=== PATIENT | female | born 1995 | race Caucasian/White ===

== ENCOUNTER 2017-04-14 18:14 | Emergency (ER) | payer OTHER ==
[~2017-04-14] VITALS: Ht 162.6 cm; Wt 108.1 kg
[2017-04-14 18:18] VITALS: TEMP 36.7; Ht 162.6 cm; Wt 108.1 kg
[2017-04-14 18:57] LABS: BASO % 0.2 %; BASO ABS # 0.03 K/uL (0-0.2); COMPLETE YES; EOS % 1.7 %; HEMATOCRIT 40.2 % (37-47); IG% 0.2 %; LYMPH % 22.5 %; LYMPH ABS # 2.97 K/uL (1.2-3.4); MEAN CELL VOLUME 75.4 fL (80-100); MEAN CORPUSCULAR HEMOGLOBIN 24.2 pg (25-34); MEAN CORPUSCULAR HGB CONC 32.1 g/dl (32-36); MEAN PLATELET VOLUME 9.7 fL (7.4-10.4); MONO % 8.5 %; NEUT % 66.9 %; PLATELET COUNT 311 K/uL (130-400); RED BLOOD COUNT 5.33 M/uL (4.2-5.4); WHITE BLOOD COUNT 13.22 K/uL (4.8-10.8)
[2017-04-14 19:19] LABS: ALT/SGPT 27 U/L (12-78); AST/SGOT 19 U/L (15-37); BLOOD UREA NITROGEN 7 mg/dl (7-18); BUN/CREATININE RATIO 12.5 (10-20); CALCIUM 9.6 mg/dl (8.5-10.1); CARBON DIOXIDE 27 mmol/L (21-32); CHLORIDE 105 mmol/L (98-107); CREATININE 0.58 mg/dl (0.60-1.20); GLUCOSE 80 mg/dl (70-99); POTASSIUM 3.9 mmol/L (3.5-5.1); SODIUM 139 mmol/L (136-145)
[2017-04-14] MEDS ORDERED: LAMO150T32 PO (19:20)
[2017-04-14] MEDS ORDERED: QUET1TAB32 PO (19:20)
[2017-04-14] MEDS ORDERED: CHOL1TAB12 PO (19:20)
[2017-04-14 19:24] LABS: ALKALINE PHOSPHATASE 121 U/L (45-117)
[2017-04-14 19:43] LABS: URINE APPEARANCE CLEAR (CLEAR); URINE BILIRUBIN NEG (NEG); URINE COLOR YELLOW; URINE EPITHELIAL CELL AUTO >30 /lpf (0-5); URINE NITRITE NEG (NEG); URINE SPECIFIC GRAVITY 1.015 (1.000-1.030); UROBILINOGEN NEG (NEG); ZZUR CULT IF INDIC CLEAN CATCH YES
--- NOTE | 2017-04-14 19:44 | DIAGNOSTIC IMAGING REPORT ---
SINGLE VIEW CHEST CLINICAL HISTORY: Atypical chest pain. FINDINGS: An AP, portable, upright chest radiograph is obtained. No prior studies are available for comparison at the time of dictation. The examination is degraded by portable technique and large body habitus. The cardiomediastinal silhouette is unremarkable. The lungs and pleural spaces are clear. No pneumothorax is seen. The bony thorax is grossly intact. IMPRESSION: No active disease in the chest. Electronically signed by: Ambrosio Silva M.D. 04/14/2017 7:43 PM Dictated Date/Time: 04/14/2017 7:42 PM
[2017-04-14 19:45] LABS: MANUAL MICROSCOPIC REQUIRED? NO; REVIEW REQ? NO
[2017-04-14] MEDS ORDERED: KETOROLAC TROMETHAMINE 30 MG/ML VIAL IV STA (20:53)
[2017-04-14] MEDS ORDERED: OPTIRAY 320 IV PRN (21:00)
--- NOTE | 2017-04-14 21:44 | DIAGNOSTIC IMAGING REPORT ---
CT ANGIOGRAM OF THE CHEST CLINICAL HISTORY: Atypical chest pain. COMPARISON STUDY: Chest x-ray dated 04/14/2017. TECHNIQUE: Following the IV administration of 90 cc of Optiray 320, CT angiogram of the chest was performed from the thoracic upper abdomen to the thoracic inlet utilizing the pulmonary embolus protocol. Images are reviewed in the axial, sagittal, and coronal planes. 3-D MIPS images are created and assessed. IV contrast was administered without complication. A dose lowering technique was utilized adhering to the principles of ALARA. The examination is degraded by large body habitus, and by streak artifact from the body wall abutting the CT gantry. CT DOSE: 596.99 mGy.cm FINDINGS: Thyroid: Imaged portions of the thyroid gland are normal in size and attenuation. Thoracic aorta: The thoracic aorta is normal in caliber and demonstrates standard 3-vessel arch anatomy. No dissection is seen. Pulmonary vasculature: The pulmonary trunk is top normal in caliber. There is no evidence of acute pulmonary embolus within the main, lobar, or segmental pulmonary arteries. There are small, thin, and centrally located linear filling defects seen within the right upper and left upper lobe pulmonary arteries, likely representing trace chronic pulmonary embolus (axial images #139 and #147). Heart: The heart is mildly enlarged and without pericardial effusion. Lungs and pleural spaces: Evaluation of the lung parenchyma is modestly degraded by respiratory motion artifact. There are trace pleural effusions. No airspace consolidation is identified. The trachea and central airways are clear. Mild diffuse peribronchial thickening is noted. Mediastinum: There is no mediastinal lymphadenopathy. There is a 2.8 x 5.5 cm lobulated soft tissue structure in the anterior mediastinum seen on axial image #146. Christine: Clear. Axillae: There is no axillary lymphadenopathy. Upper abdomen: The liver appears enlarged and steatotic. Partially visualized upper abdominal viscera is otherwise within normal limits. Skeletal structures: No lytic or blastic bony lesions are seen. IMPRESSION: 1. There is no evidence of acute pulmonary embolus in the main, lobar, or segmental pulmonary arteries. 2. There are tiny thin linear filling defects located centrally within the right upper and left upper lobe pulmonary arteries. This likely represents trace chronic pulmonary embolus. 3. Mild cardiac enlargement. 4. There are trace pleural effusions. No airspace consolidation is seen typical for pneumonia. 5. Mild diffuse peribronchial thickening suggests reactive airway disease. Clinical correlation will be required. 6. There is a 5.5 cm lobulated soft tissue attenuation structure in the anterior mediastinum. This is the expected location of the thymus, and may represent thymic hyperplasia or less likely a thymoma. Consider nonemergent pulmonology follow-up. 7. Hepatomegaly and hepatic steatosis. 8. Additional findings as above. Electronically signed by: Ambrosio Silva M.D. 04/14/2017 9:43 PM Dictated Date/Time: 04/14/2017 9:30 PM
[2017-04-14] MEDS ORDERED: HEPARIN SOD 5000 UNIT/0.5 ML CARP ONE (23:51)
[2017-04-14] MEDS ORDERED: HEPARIN 25000 UNIT/500 ML D5W ONE (23:52)
[2017-04-15 00:10] LABS: PARTIAL THROMBOPLASTIN RATIO 1.2; PROTHROMBIN TIME (PATIENT) 10.4 SECONDS (9.0-12.0)
--- NOTE | 2017-04-15 00:49 | Medical Consult ---
Consultation Date of Consultation: Apr 15, 2017. Attending Physician: History of Present Illness 21 y/o F - denies a significant past medical history. Pt is visiting from [place]. C/O B/L lower CP and mild SOB for a few weeks. The pain was worse today and she presented to the ER therefore. A CTA was obtained which was consistent with B/L small peripheral filling defects and trace effusions. She does not display tachycardia, hypoxia or any evidence of R heart strain. The pt is a smoker and is obese. She does not take control pills and does not ave a family or personal history of DVT/PE. Family History Patient reports no known family medical history. Social History Smoking Status: Current Every Day Smoker Allergies Coded Allergies: No Known Allergies (Unverified , 04/14/17) Current Inpatient Medications Current Inpatient Medications Medications (Trade) Dose Ordered Sig/Eduarda Route Start Time Stop Time Status Last Admin Dose Admin Ioversol (Optiray 320) 100 ml UD PRN IV 04/14/17 21:00 04/18/17 20:59 Review of Systems Constitutional: No fever, No chills, No sweats Eyes: No worsening of vision, No eye pain ENT: No hearing loss, No unusual epistaxis, No nasal symptoms Respiratory: + shortness of breath, No cough, No wheezing Cardiovascular: + chest pain, No orthopnea, No PND Abdomen: No pain, No nausea, No vomiting Musculoskeletal: No joint pain Genitourinary - Female: No dysuria, No urinary frequency Neurologic: No memory loss, No paralysis, No weakness Psychiatric: No depression symptoms Endocrine: No fatigue Hematologic / Lymphatic: No abnormal bleeding/bruising Integumentary: No rash Allergic / Immunologic: No environmental allergies Physical Exam Date Time Temp Pulse Resp B/P (MAP) Pulse Ox O2 Delivery O2 Flow Rate FiO2 04/14/17 23:33 77 20 137/82 95 Room Air 04/14/17 22:57 70 04/14/17 21:01 86 20 135/76 98 Room Air 04/14/17 20:14 78 20 149/47 98 Room Air 04/14/17 19:14 85 04/14/17 18:18 36.7 92 18 131/70 93 Room Air General Appearance: WD/WN, no apparent distress Head: normocephalic Eyes: normal inspection ENT: normal ENT inspection, pharynx normal Neck: supple, no JVD Respiratory/Chest: chest non-tender, lungs clear, normal breath sounds Cardiovascular: regular rate, rhythm, no edema, no gallop Abdomen/GI: normal bowel sounds, non tender, soft Back: normal inspection, no CVA tenderness, no muscle spasm, normal range of motion Extremities/Musculoskelatal: normal inspection, no calf tenderness, normal capillary refill, no pedal edema, normal range of motion Neurologic/Psych: [employer] II-XII nml as tested, no motor/sensory deficits, alert, normal mood/affect, normal reflexes, oriented x 3 Skin: normal color, warm/dry, no rash Laboratory Results Last 24 Hours Test 04/14/17 18:47 04/14/17 19:30 White Blood Count 13.22 K/uL Red Blood Count 5.33 M/uL Hemoglobin 12.9 g/dL Hematocrit 40.2 % Mean Corpuscular Volume 75.4 fL Mean Corpuscular Hemoglobin 24.2 pg Mean Corpuscular Hemoglobin Concent 32.1 g/dl Platelet Count 311 K/uL Mean Platelet Volume 9.7 fL Neutrophils (%) (Auto) 66.9 % Lymphocytes (%) (Auto) 22.5 % Monocytes (%) (Auto) 8.5 % Eosinophils (%) (Auto) 1.7 % Basophils (%) (Auto) 0.2 % Neutrophils # (Auto) 8.84 K/uL Lymphocytes # (Auto) 2.97 K/uL Monocytes # (Auto) 1.12 K/uL Eosinophils # (Auto) 0.23 K/uL Basophils # (Auto) 0.03 K/uL RDW Standard Deviation 40.6 fL RDW Coefficient of Variation 14.9 % Immature Granulocyte % (Auto) 0.2 % Immature Granulocyte # (Auto) 0.03 K/uL Prothrombin Time 10.4 SECONDS Prothromb Time International Ratio 1.0 Activated Partial Thromboplast Time 31.3 SECONDS Partial Thromboplastin Ratio 1.2 D-Dimer 590 ug/L FEU Sodium Level 139 mmol/L Potassium Level 3.9 mmol/L Chloride Level 105 mmol/L Carbon Dioxide Level 27 mmol/L Anion Gap 7.0 mmol/L Blood Urea Nitrogen 7 mg/dl Creatinine 0.58 mg/dl Est Creatinine Clear Calc Drug Dose 185.8 ml/min Estimated GFR () > 150.0 Estimated GFR (Non- 132.7 BUN/Creatinine Ratio 12.5 Random Glucose 80 mg/dl Calcium Level 9.6 mg/dl Total Bilirubin 0.5 mg/dl Direct Bilirubin 0.1 mg/dl Aspartate Amino Transf (AST/SGOT) 19 U/L Alanine Aminotransferase (ALT/SGPT) 27 U/L Alkaline Phosphatase 121 U/L Troponin I < 0.015 ng/ml Total Protein 8.0 gm/dl Albumin 4.0 gm/dl Lipase 70 U/L Urine Color YELLOW Urine Appearance CLEAR Urine pH 8.0 Urine Specific [place] 1.015 Urine Protein NEG Urine Glucose (UA) NEG Urine Ketones NEG Urine Occult Blood NEG Urine Nitrite NEG Urine Bilirubin NEG Urine Urobilinogen NEG Urine Leukocyte Esterase TRACE Urine WBC (Auto) 1-5 /hpf Urine RBC (Auto) 0-4 /hpf Urine Hyaline Casts (Auto) 0 /lpf Urine Epithelial Cells (Auto) >30 /lpf Urine Bacteria (Auto) 1+ Urine Test NEG Assessment & Plan 21 y/o F - denies a significant past medical history. Pt is visiting from [place]. C/O B/L lower CP and mild SOB for a few weeks. The pain was worse today and she presented to the ER therefore. A CTA was obtained which was consistent with B/L small peripheral filling defects and trace effusions. She does not display tachycardia, hypoxia or any evidence of R heart strain. The pt is a smoker and is obese. She does not take control pills and does not ave a family or personal history of DVT/PE. As the pt is stable and her PEs are small and peripheral, we feel she could be discharged with oral anticoagulation. Appropriate follow-up and smoking cessation advice should be provided. We have advised on obtaining LE ultrasounds prior to DC. Total time for this admit including review of labs, imaging - discussion with pt and ER attending - 31 min
--- NOTE | 2017-04-15 00:56 | DIAGNOSTIC IMAGING REPORT ---
ULTRASOUND BILATERAL LOWER EXTREMITY VENOUS CLINICAL HISTORY: Pulmonary embolus. COMPARISON STUDY: No priors. TECHNIQUE: Real-time, grayscale, and color Doppler sonography of the deep veins of the right and left lower extremity was performed from the inguinal crease to the calf. Compression and augmentation were utilized. The examination is degraded by large body habitus. FINDINGS: There is no sonographic evidence of deep venous thrombosis identified in the right or left lower extremity. The common femoral, superficial femoral, and popliteal veins are patent and normally compressible bilaterally. The greater saphenous vein and the profunda femoris vein at the junction with the common femoral vein are clear in both legs. The visualized calf veins are patent bilaterally. IMPRESSION: There is no sonographic evidence of deep venous thrombosis identified in the right or left lower extremity. Electronically signed by: Ambrosio Silva M.D. 04/15/2017 12:55 AM Dictated Date/Time: 04/15/2017 12:55 AM
[2017-04-15] MEDS ORDERED: APIXABAN 2.5 MG TAB PO SCH (01:15)
[2017-04-15 01:25] VITALS: BP 137/92; PULSE 82; O2SAT 97
[2017-04-15] MEDS ORDERED: APIX1TAB3 PO (01:25)
--- NOTE | 2017-04-15 01:47 | EMERGENCY ROOM VISIT NOTE ---
History Report prepared by Juanito: Dejan Holloway Under the Supervision of: Dr. Scott Mehta D.O. First contact with patient: 18:25 Chief Complaint: ABDOMINAL PAIN Stated Complaint: CHEST PAIN History of Present Illness The patient is a 21 year old female who presents to the Emergency Room with complaints of intermittent, severe lower chest pain beginning a month ago. The patient states she has been experiencing the same symptoms for the past month. She reports her current episode started about 10 hours ago. She states she got out of bed this morning, stood up, and fell back into the bed because she got extremely lightheaded. The patient notes laying down makes her feel better. She states she was taking Prilosec this morning, and it helped a little. The patient reports she has not eaten much today, and her symptoms do not occur with fatty food consumption. She notes breathing does not affect her symptoms. The patient denies loss of consciousness, vomiting, coughing up blood, using control, and burning with urination. She states she missed her last menstrual period, but her tests were negative multiple times. The patient denies a history of heart disease, cancer, hypertension, and hyperlipidemia Source of History: patient Onset: a month ago Position: chest (lower) Symptom Intensity: severe Timing: intermittent Modifying Factors (Relieving): other (Prilosec) Associated Symptoms: No LOC, No vomiting Note: Denies: coughing up blood, using control, burning with urination Review of Systems See HPI for pertinent positives & negatives. A total of 10 systems reviewed and were otherwise negative. Past Medical & Surgical Medical Problems: (1) No Known Active Medical Problems Family History Patient reports no known family medical history. Social History Smoking Status: Current Every Day Smoker Marital Status: Current/Historical Medications Scheduled Apixaban (Eliquis), 5 MG PO BID Apixaban (Eliquis), 10 MG PO BID Cholecalciferol (Vitamin D3), 3,000 INTER.UNIT PO BID Lamotrigine (Lamictal), 150 MG PO QAM Quetiapine Fumarate (Seroquel), 50 MG PO HS Allergies Coded Allergies: No Known Allergies (Unverified , 04/14/17) Physical Exam Vital Signs Date Time Temp Pulse Resp B/P (MAP) Pulse Ox O2 Delivery O2 Flow Rate FiO2 04/15/17 01:25 82 20 137/92 97 Room Air 04/14/17 23:33 77 20 137/82 95 Room Air 04/14/17 22:57 70 04/14/17 21:01 86 20 135/76 98 Room Air 04/14/17 20:14 78 20 149/47 98 Room Air 04/14/17 19:14 85 04/14/17 18:18 36.7 92 18 131/70 93 Room Air Physical Exam GENERAL: Sitting up in bed, alert, no distress, non-toxic EYE EXAM: normal conjunctiva, PERRL and EOM's grossly intact OROPHARYNX: no exudate, no erythema, lips, buccal mucosa, and tongue normal and mucous membranes are moist NECK: supple, no nuchal rigidity, no adenopathy, non-tender CHEST: Bilateral tenderness on the lower aspect of ribs. LUNGS: Clear to auscultation. Normal chest wall mechanics HEART: no murmurs, S1 normal and S2 normal ABDOMEN: abdomen soft, non-tender, normo-active bowel sounds, no masses, no rebound or guarding. BACK: Back is symmetrical on inspection and there is no deformity, no midline tenderness, no CVA tenderness. SKIN: no rashes and no bruising UPPER EXTREMITIES: upper extremities are grossly normal. LOWER EXTREMITIES: No pitting edema. Calves are equal bilaterally. NEURO EXAM: Normal sensorium, cranial nerves II-XII grossly intact, normal speech, no gross weakness of arms, no gross weakness of legs. Medical Decision & Procedures ER Provider Diagnostic Interpretation: Radiology results as stated below per my review and the radiologist's interpretation: SINGLE VIEW CHEST CLINICAL HISTORY: Atypical chest pain. FINDINGS: An AP, portable, upright chest radiograph is obtained. No prior studies are available for comparison at the time of dictation. The examination is degraded by portable technique and large body habitus. The cardiomediastinal silhouette is unremarkable. The lungs and pleural spaces are clear. No pneumothorax is seen. The bony thorax is grossly intact. IMPRESSION: No active disease in the chest. Electronically signed by: Ambrosio Silva M.D. 04/14/2017 7:43 PM Dictated Date/Time: 04/14/2017 7:[address] ANGIOGRAM OF THE CHEST CLINICAL HISTORY: Atypical chest pain. COMPARISON STUDY: Chest x-ray dated 04/14/2017. TECHNIQUE: Following the IV administration of 90 cc of Optiray 320, CT angiogram of the chest was performed from the thoracic upper abdomen to the thoracic inlet utilizing the pulmonary embolus protocol. Images are reviewed in the axial, sagittal, and coronal planes. 3-D MIPS images are created and assessed. IV contrast was administered without complication. A dose lowering technique was utilized adhering to the principles of ALARA. The examination is degraded by large body habitus, and by streak artifact from the body wall abutting the CT gantry. CT DOSE: 596.99 mGy.cm FINDINGS: Thyroid: Imaged portions of the thyroid gland are normal in size and attenuation. Thoracic aorta: The thoracic aorta is normal in caliber and demonstrates standard 3-vessel arch anatomy. No dissection is seen. Pulmonary vasculature: The pulmonary trunk is top normal in caliber. There is no evidence of acute pulmonary embolus within the main, lobar, or segmental pulmonary arteries. There are small, thin, and centrally located linear filling defects seen within the right upper and left upper lobe pulmonary arteries, likely representing trace chronic pulmonary embolus (axial images #139 and #147). Heart: The heart is mildly enlarged and without pericardial effusion. Lungs and pleural spaces: Evaluation of the lung parenchyma is modestly degraded by respiratory motion artifact. There are trace pleural effusions. No airspace consolidation is identified. The trachea and central airways are clear. Mild diffuse peribronchial thickening is noted. Mediastinum: There is no mediastinal lymphadenopathy. There is a 2.8 x 5.5 cm lobulated soft tissue structure in the anterior mediastinum seen on axial image #146. Christine: Clear. Axillae: There is no axillary lymphadenopathy. Upper abdomen: The liver appears enlarged and steatotic. Partially visualized upper abdominal viscera is otherwise within normal limits. Skeletal structures: No lytic or blastic bony lesions are seen. IMPRESSION: 1. There is no evidence of acute pulmonary embolus in the main, lobar, or segmental pulmonary arteries. 2. There are tiny thin linear filling defects located centrally within the right upper and left upper lobe pulmonary arteries. This likely represents trace chronic pulmonary embolus. 3. Mild cardiac enlargement. 4. There are trace pleural effusions. No airspace consolidation is seen typical for pneumonia. 5. Mild diffuse peribronchial thickening suggests reactive airway disease. Clinical correlation will be required. 6. There is a 5.5 cm lobulated soft tissue attenuation structure in the anterior mediastinum. This is the expected location of the thymus, and may represent thymic hyperplasia or less likely a thymoma. Consider nonemergent pulmonology follow-up. 7. Hepatomegaly and hepatic steatosis. 8. Additional findings as above. Electronically signed by: Ambrosio Silva M.D. 04/14/2017 9:43 PM Dictated Date/Time: 04/14/2017 9:30 PM ULTRASOUND BILATERAL LOWER EXTREMITY VENOUS CLINICAL HISTORY: Pulmonary embolus. COMPARISON STUDY: No priors. TECHNIQUE: Real-time, grayscale, and color Doppler sonography of the deep veins of the right and left lower extremity was performed from the inguinal crease to the calf. Compression and augmentation were utilized. The examination is degraded by large body habitus. FINDINGS: There is no sonographic evidence of deep venous thrombosis identified in the right or left lower extremity. The common femoral, superficial femoral, and popliteal veins are patent and normally compressible bilaterally. The greater saphenous vein and the profunda femoris vein at the junction with the common femoral vein are clear in both legs. The visualized calf veins are patent bilaterally. IMPRESSION: There is no sonographic evidence of deep venous thrombosis identified in the right or left lower extremity. Electronically signed by: Ambrosio Silva M.D. 04/15/2017 12:55 AM Dictated Date/Time: 04/15/2017 12:55 AM Laboratory Results 04/14/17 18:47 Red Blood Count 5.33, Mean Corpuscular Volume 75.4, Mean Corpuscular Hemoglobin 24.2, Mean Corpuscular Hemoglobin Concent 32.1, Mean Platelet Volume 9.7, Neutrophils (%) (Auto) 66.9, Lymphocytes (%) (Auto) 22.5, Monocytes (%) (Auto) 8.5, Eosinophils (%) (Auto) 1.7, Basophils (%) (Auto) 0.2, Neutrophils # (Auto) 8.84, Lymphocytes # (Auto) 2.97, Monocytes # (Auto) 1.12, Eosinophils # (Auto) 0.23, Basophils # (Auto) 0.03 04/14/17 18:47 Test 04/14/17 18:47 04/14/17 19:30 White Blood Count 13.22 K/uL (4.8-10.8) Red Blood Count 5.33 M/uL (4.2-5.4) Hemoglobin 12.9 g/dL (12.0-16.0) Hematocrit 40.2 % (37-47) Mean Corpuscular Volume 75.4 fL (80-100) Mean Corpuscular Hemoglobin 24.2 pg (25-34) Mean Corpuscular Hemoglobin Concent 32.1 g/dl (32-36) Platelet Count 311 K/uL (130-400) Mean Platelet Volume 9.7 fL (7.4-10.4) Neutrophils (%) (Auto) 66.9 % Lymphocytes (%) (Auto) 22.5 % Monocytes (%) (Auto) 8.5 % Eosinophils (%) (Auto) 1.7 % Basophils (%) (Auto) 0.2 % Neutrophils # (Auto) 8.84 K/uL (1.4-6.5) Lymphocytes # (Auto) 2.97 K/uL (1.2-3.4) Monocytes # (Auto) 1.12 K/uL (0.11-0.59) Eosinophils # (Auto) 0.23 K/uL (0-0.5) Basophils # (Auto) 0.03 K/uL (0-0.2) RDW Standard Deviation 40.6 fL (36.4-46.3) RDW Coefficient of Variation 14.9 % (11.5-14.5) Immature Granulocyte % (Auto) 0.2 % Immature Granulocyte # (Auto) 0.03 K/uL (0.00-0.02) Prothrombin Time 10.4 SECONDS (9.0-12.0) Prothromb Time International Ratio 1.0 (0.9-1.1) Activated Partial Thromboplast Time 31.3 SECONDS (21.0-31.0) Partial Thromboplastin Ratio 1.2 D-Dimer 590 ug/L FEU (0-500) Anion Gap 7.0 mmol/L (3-11) Est Creatinine Clear Calc Drug Dose 185.8 ml/min Estimated GFR () > 150.0 Estimated GFR (Non- 132.7 BUN/Creatinine Ratio 12.5 (10-20) Calcium Level 9.6 mg/dl (8.5-10.1) Total Bilirubin 0.5 mg/dl (0.2-1) Direct Bilirubin 0.1 mg/dl (0-0.2) Aspartate Amino Transf (AST/SGOT) 19 U/L (15-37) Alanine Aminotransferase (ALT/SGPT) 27 U/L (12-78) Alkaline Phosphatase 121 U/L (45-117) Troponin I < 0.015 ng/ml (0-0.045) Total Protein 8.0 gm/dl (6.4-8.2) Albumin 4.0 gm/dl (3.4-5.0) Lipase 70 U/L (73-393) Urine Color YELLOW Urine Appearance CLEAR (CLEAR) Urine pH 8.0 (4.5-7.5) Urine Specific Hubertus 1.015 (1.000-1.030) Urine Protein NEG (NEG) Urine Glucose (UA) NEG (NEG) Urine Ketones NEG (NEG) Urine Occult Blood NEG (NEG) Urine Nitrite NEG (NEG) Urine Bilirubin NEG (NEG) Urine Urobilinogen NEG (NEG) Urine Leukocyte Esterase TRACE (NEG) Urine WBC (Auto) 1-5 /hpf (0-5) Urine RBC (Auto) 0-4 /hpf (0-4) Urine Hyaline Casts (Auto) 0 /lpf (0-5) Urine Epithelial Cells (Auto) >30 /lpf (0-5) Urine Bacteria (Auto) 1+ (NEG) Urine Test NEG (NEG) Laboratory results per my review. Medications Administered Medications (Trade) Dose Ordered Sig/Eduarda Route Start Time Stop Time Status Last Admin Dose Admin Ketorolac Tromethamine (Toradol Inj) 30 mg NOW STAT IV 04/14/17 20:53 04/14/17 20:54 DC 04/14/17 20:58 30 MG Heparin Sodium (Porcine) (Heparin Sq 5000 Unit/0.5ml) 10,000 unit STK-MED ONCE .ROUTE 04/14/17 23:51 04/15/17 01:07 DC 04/15/17 00:07 6,000 UNIT Heparin Sodium/ Dextrose (Heparin 25,000 Unit/500ml D5W) 25,000 unit STK-MED ONCE .ROUTE 04/14/17 23:52 04/15/17 01:07 DC 04/15/17 00:06 25,000 UNIT ECG Indication: chest pain Rate (beats per minute): 75 Rhythm: sinus rhythm Findings: no ectopy, other (normal axis) ED Course ED COURSE: Vital signs were reviewed and showed normotensive. The patients medical record was reviewed The above diagnostic studies were performed and reviewed. ED treatments and interventions as stated above. 1826: The patient was evaluated in room C07. A complete history and physical examination was performed. 2024: I reevaluated the patient. She is showing discomfort still. I updated her of the lab results so far. 2052: Ordered Toradol Inj 30mg IV 8: Upon reevaluation, the patient is resting.I discussed my findings with the patient and she understands and agrees with the treatment plan. 2231: I discussed the patient's case with Dr. Mccullough, [facility] [place] Hospitalist. He requested I order and ultrasound of the bilateral lower extremities. 2351: Ordered Heparin Sodium (Porcine) 47091 unit .ROUTE 2351: Ordered Heparin Sodium/Dextrose 40534 unit .ROUTE. 0122: I discussed the patient's case with Dr. Mccullough again. He agrees with discharge. 0123: Upon reevaluation, the patient is feeling better. I discussed the consult with Dr. Mccullough. She verbalizes agreement and understanding of the new treatment plan. The patient was discharged home. Based on the patients age, coexisting illnesses, exam and lab findings the decision to treat as an outpatient was made. The patient remained stable while under my care. The patient was stable at discharge. Medical Decision Differential diagnoses includes but is not limited to acute coronary syndrome, myocardial infarction, pericarditis, pulmonary embolus, aortic dissection, pneumonia, pneumothorax, musculoskeletal, shingles, esophageal. Patient is a 21-year-old female who presents to ER for bilateral chest pain which is worse with breathing. She does admit to some shortness of breath. She notes this has been intermittent over the past month. She denies any history of diabetes, hypertension, hyperlipidemia, CAD or sudden in her family at a young age. EKG was nondiagnostic. Troponin was negative. CBC shows a mild leukocytosis of 13,000. Afebrile. BMP all LFTs, bilirubin and lipase was unremarkable. D-dimer was elevated. negative. UA negative. CT PE shows small PEs which were read as chronic. Patient has faint pleural effusions. Based on this and her symptoms feel this may be more acute. I was concerned and consequently updated patient at bedside and discussed the case with internal medicine for admission. Patient was placed on a heparin drip and bolus. Case was discussed with Dr. Clark on 3 separate occasions. He recommended duplex of the lower extremities following his complete physical evaluation. Duplex showed no DVTs. I updated him in regards to this. Heparin drip was stopped. He recommended Eliquis. I discussed this with the patient. Patient denies any hematuria, hematemesis, hemoptysis, melena, trauma, recent surgeries, previous head bleeds. Distress the importance that if there is a trauma she has a high likelihood of bleeding including into her head. She was able to repeat all of this back to me. She will take Eliquis 10 mg twice a day for 7 days and then switch to 5 mg twice a day for several months. I gave her a prescription a long with enough for 14 days. I stressed the importance of following up with PCP within 2-3 days. Patient was agreeable and will go home to follow-up. I explained all this to the boyfriend at bedside who understood this as well. Patient was discharged with pulmonary emboli per internal medicine and a mediastinal mass to follow-up with PCP and pulmonology. I did discuss with care management who will contact PCP on Monday in order to inform them so she has close follow-up. Discussed with Pt concerning signs and symptoms to watch out for. Pt was instructed to follow up with their PCP and discussed with the patient their option to return to the ED at anytime for persistent or worsening symptoms. The appropriate anticipatory guidance and out- patient management, including indications for return to the emergency department , were explained at length to the patient and understood. Medication Reconcilliation Current Medication List: was personally reviewed by me Blood Pressure Screening Patient's blood pressure: Normal blood pressure Blood pressure disposition: Did not require urgent referral Consults Time Called: 2213 Consulting Physician: Dr. Mccullough, [facility] [place] Hospitalist Returned Call: [phone] I discussed the patient's case with Dr. Mccullough [facility] [place] Hospitalist. The patient will be evaluated for further treatment and care. 0122: I discussed the patient's case with Dr. Mccullough again. He agrees with discharge. Impression Primary Impression: Pulmonary emboli Additional Impression: Mediastinal mass Critical Care I have personally spent 35 minutes of critical care time in the direct management of this patient. This includes bedside care, interpretation of diagnostic studies, and testing, discussion with consultants, patient, and family members, and other required patient management activities. This 35 minutes is in excess of all separately billable procedures. Scribe Attestation The scribe's documentation has been prepared under my direction and personally reviewed by me in its entirety. I confirm that the note above accurately reflects all work, treatment, procedures, and medical decision making performed by me. Departure Information Dispostion Home / Self-Care Prescriptions Apixaban (ELIQUIS) 5 Mg Tab 10 MG PO BID for 7 Days, #28 TAB Prov: Scott Mehta, DO 04/15/17 Apixaban (ELIQUIS) 5 Mg Tab 5 MG PO BID for 7 Days, #14 TAB Prov: Scott Mehta, DO 04/15/17 Referrals No Doctor, Assigned (PCP) Forms HOME CARE DOCUMENTATION FORM, IMPORTANT VISIT INFORMATION Patient Instructions Apixaban oral tablets, Embolism Pulmonary, My [facility] Additional Instructions Please follow up with your primary care doctor with in the next 24 hours. Any worsening of your symptoms, please return to the ED immediately. This includes any fevers greater than 100.4, worsening pain, chest pain, shortness breath, passing out, persistent nausea, vomiting, unable to eat or drink, or any other concerning signs or symptoms from your standpoint. You were placed on a blood thinner called Eliquis following being found to have pulmonary emboli. Please take the 10 mg twice a day for the next 7 days. This should be followed by 5 mg twice a day for the next several months as directed by your primary care doctor. You must follow up with your primary care doctor within the next week as you were given only enough eliquis for the next 2 weeks. You must continue this medication once these prescriptions end and must obtain projection from your primary care doctor. Please take Tylenol as needed for pain. As discussed, Eliquis is a blood thinner and will cause you to bleed extremely easily. If you start coughing up blood, pooping blood, noticing dark tarry stools, vomiting blood, you must be seen immediately in the ER. Also if you have any serious trauma or hit your head you must be evaluated by a physician as you are at an increased risk of bleeding. There is also a 5.5 cm soft tissue mass in the anterior mediastinum which be followed up by a tool adjuster in the next month. Problem Qualifiers Primary Impression: Pulmonary emboli Pulmonary embolism type: other Chronicity: unspecified Acute cor pulmonale presence: without acute cor pulmonale Qualified Codes: I26.99 - Other pulmonary embolism without acute cor pulmonale
[2017-04-15] MEDS ORDERED: RIVA1.5T PO (22:58)
== END 2017-04-15 02:00 | disposition home or self-care (01) ==
LOC: C.EDB 18:17 → C.EDC 04-15 02:00
DX: I26.99 Other pulmonary embolism without acute cor pulmonale (principal); J98.59 Other diseases of mediastinum, not elsewhere classified; E66.9 Obesity, unspecified; F17.200 Nicotine dependence, unspecified, uncomplicated

== ENCOUNTER 2017-04-15 21:36 | Emergency (ER) | payer OTHER ==
[~2017-04-15] VITALS: Ht 162.6 cm; Wt 108.0 kg
[~2017-04-15 21:36] MED LIST: APIX1TAB3 PO; CHOL1TAB12 PO; LAMO150T32 PO; QUET1TAB32 PO
[2017-04-15 21:39] VITALS: TEMP 36.8; Ht 162.6 cm; Wt 108.0 kg
[2017-04-15] MEDS ORDERED: RIVA1.5T PO (22:58)
[2017-04-15] MEDS ORDERED: RIVAROXABAN TAB 15 MG TAB PO SCH (23:00)
[2017-04-15] MEDS ORDERED: RIVAROXABAN TAB 15 MG TAB PO ONE (23:00)
[2017-04-15 23:04] VITALS: BP 151/78; PULSE 76; O2SAT 97
--- NOTE | 2017-04-16 00:41 | EMERGENCY ROOM VISIT NOTE ---
History Report prepared by Juanito: Dejan Holloway Under the Supervision of: Dr. Scott Mehta D.O. First contact with patient: 21:38 Chief Complaint: MEDICATION REFILL REQUEST Stated Complaint: MEDICATION History of Present Illness The patient is a 21 year old female who presents to the Emergency Room for medication refill assistance. The patient states she is still having mild right sided chest pain under her ribs from last night, but she is feeling significantly better. She reports she went to the pharmacy 30 minutes before it closes to fill her prescription, but they did not have the Eliquis. The patient notes she called the ED to have it sent somewhere else. She states her insurance (Medical Assistance) did not cover it, and she could not afford it. Pt denies headache, change in vision, fevers, shortness of breath, nausea, vomiting, diarrhea, pain with urination, coughing blood, blood in stool, and urinating blood. Source of History: patient Quality: other (medication refill assistance) Associated Symptoms: + chest pain (right side under ribs), No fevers, No headache, No SOB, No nausea, No vomiting, No diarrhea Note: Pt denies change in vision, pain with urination, coughing blood, blood in stool , and urinating blood. Review of Systems See HPI for pertinent positives & negatives. A total of 10 systems reviewed and were otherwise negative. Past Medical & Surgical Medical Problems: (1) No Known Active Medical Problems Family History Patient reports no known family medical history. Social History Smoking Status: Current Every Day Smoker Marital Status: Current/Historical Medications Scheduled Apixaban (Eliquis), 5 MG PO BID Apixaban (Eliquis), 10 MG PO BID Cholecalciferol (Vitamin D3), 3,000 INTER.UNIT PO BID Lamotrigine (Lamictal), 150 MG PO QAM Quetiapine Fumarate (Seroquel), 50 MG PO HS Rivaroxaban (Xarelto), 15 MG PO BID Allergies Coded Allergies: No Known Allergies (Unverified , 04/15/17) Physical Exam Vital Signs Date Time Temp Pulse Resp B/P (MAP) Pulse Ox O2 Delivery O2 Flow Rate FiO2 04/15/17 23:04 76 20 151/78 97 Room Air 04/15/17 21:39 36.8 100 18 165/95 95 Room Air Physical Exam GENERAL: Sitting up in bed, laughing, no distress, non-toxic, talking in full sentences EYE EXAM: normal conjunctiva OROPHARYNX: no exudate, no erythema, lips, buccal mucosa, and tongue normal and mucous membranes are moist NECK: supple, no nuchal rigidity, no adenopathy, non-tender LUNGS: Clear to auscultation. Normal chest wall mechanics HEART: no murmurs, S1 normal and S2 normal ABDOMEN: abdomen soft, non-tender, normo-active bowel sounds, no masses, no rebound or guarding. BACK: Back is symmetrical on inspection and there is no deformity, no midline tenderness, no CVA tenderness. SKIN: no rashes and no bruising UPPER EXTREMITIES: upper extremities are grossly normal. LOWER EXTREMITIES: No pitting edema. NEURO EXAM: Normal sensorium, cranial nerves II-XII grossly intact, normal speech, no gross weakness of arms, no gross weakness of legs. Medical Decision & Procedures Medications Administered Medications (Trade) Dose Ordered Sig/Eduarda Route Start Time Stop Time Status Last Admin Dose Admin Rivaroxaban (Xarelto Tab) 15 mg NOW ONCE PO 04/15/17 23:00 04/15/17 23:01 DC 04/15/17 23:10 15 MG ED Course ED COURSE: Vital signs were reviewed and showed tachycardia and hypertension. The patients medical record was reviewed The above diagnostic studies were performed and reviewed. ED treatments and interventions as stated above. 0: The patient was evaluated in room D04B. A complete history and physical examination was performed. 0: Ordered Rivaroxaban 15mg PO 230: Upon reevaluation, the patient is comfortable. I discussed my findings with the patient and her [id number]. I had a long conversation with the [id number] who is a nurse. She understands the risks and will drive the patient back to [place] tomorrow. They understand and agree with the treatment plan. Based on the patients age, coexisting illnesses, exam and lab findings the decision to treat as an outpatient was made. The patient remained stable while under my care. The patient appeared well at the time of discharge. Medical Decision Patient is a 21-year-old female that was seen here yesterday for chest pain and shortness of breath. She was evaluated by myself and following an elevated d- dimer a CT PE was performed which showed small likely chronic PEs. Duplexes of the lower extremities were negative. She was evaluated by internal medicine who recommended discharging on Eliquis. I stressed the importance of her filling her medications in the morning which she did not do. She attempted to get Eliquis but was not [place] by [place] medical assistance [place]. She had no dose today. We instructed her to return to the ER as we're unable to contact pharmacies as they're all closed to see what was covered. She notes all of her symptoms have completely resolved with the exception that she has faint left-sided chest pain which has improved markedly. She denies any shortness of breath at this time. She just walked in slowly tachycardic but this resolved. She is not hypoxic. Discussed with pharmacy and care management. As she is out of state. Care management nothing will be covered in [place]. Informed both her, her taras and future [id number] that she needs to return immediately to want to tell where. She was discharged with 5 days worth/to go pack of Xarelto. She was given a prescription for this for additional 10 days. This will give her enough time to get in with her PCP as I instructed her to call him Monday or Monday and aftercare management will be calling as well to help get her in. She was switched to Xarelto as we were able to obtained a voucher for this medication from care management. Patient again understood the risks and benefits. Taras mom who is a nurse take care of getting her to [place] and setting everything up as an outpatient/helping. Discussed with Pt concerning signs and symptoms to watch out for. Pt was instructed to follow up with their PCP and discussed with the patient their option to return to the ED at anytime for persistent or worsening symptoms. The appropriate anticipatory guidance and out-patient management, including indications for return to the emergency department, were explained at length to the patient and understood. Medication Reconcilliation Current Medication List: was personally reviewed by me Blood Pressure Screening Patient's blood pressure: Elevated blood pressure Blood pressure disposition: Referred to PCP Impression Primary Impression: Pulmonary embolism Additional Impression: Noncompliance with medications Scribe Attestation The scribe's documentation has been prepared under my direction and personally reviewed by me in its entirety. I confirm that the note above accurately reflects all work, treatment, procedures, and medical decision making performed by me. Departure Information Dispostion Home / Self-Care Prescriptions Rivaroxaban (XARELTO) 15 Mg Tab 15 MG PO BID for 10 Days, #20 TAB Prov: Scott Mehta, DO 04/15/17 Referrals No Doctor, Assigned (PCP) Forms HOME CARE DOCUMENTATION FORM, IMPORTANT VISIT INFORMATION, WORK / SCHOOL INSTRUCTIONS Patient Instructions Embolism Pulmonary, [facility], Rivaroxaban oral tablets Additional Instructions Please keep your previous discharge instructions and follow them. Do not take eliqus as previously prescribed. We were able to obtain a discount/ voucher for Xlerto. You were given a to go pack. Please take one pill twice a day and get your prescription filled in [place] with the voucher for xlerto. You must follow up with your primary care doctor on Monday or Monday. You must obtain another prescription for a blood thinner from your primary care doctor as she cannot be off Xlerto. As previously discussed on discharge instructions any trauma, coughing up blood , vomiting blood, blood in your stool, urinating blood; you must be evaluated emergently by a physician. Problem Qualifiers Primary Impression: Pulmonary embolism Pulmonary embolism type: other Chronicity: unspecified Acute cor pulmonale presence: without acute cor pulmonale Qualified Codes: I26.99 - Other pulmonary embolism without acute cor pulmonale
[2017-04-16] MEDS ORDERED: RIVAROXABAN TAB 15 MG TAB PO SCH (09:00)
== END 2017-04-15 23:18 | disposition home or self-care (01) ==
LOC: C.EDB 21:37 → C.EDD 23:18
DX: I26.99 Other pulmonary embolism without acute cor pulmonale (principal); Z91.14 Patient's other noncompliance with medication regimen; F17.200 Nicotine dependence, unspecified, uncomplicated